=== PATIENT | male | born 1980 | race Caucasian/White ===

== ENCOUNTER → 2016-12-06 | Outpatient (CLI) | payer BC ==
--- NOTE | 2016-12-06 10:06 | CT ---
EXAMINATION TYPE: CT soft tissue neck w con DATE OF EXAM: 12/06/2016 9:38 AM COMPARISON: NONE HISTORY: Rt sided neck pain and swelling CT DLP: 510.4 mGycm CONTRAST: CT scan of the neck is performed with IV Contrast, patient injected with 100 ml mL of Omnipaque 300. Contrast enhanced CT of the neck was performed from the skull base through the lung apices. AIRWAY: The supraglottic, glottic, and subglottic portions of the airway appear patent and free of mass. SALIVARY GLANDS: The submandibular and parotid glands are free of mass or inflammatory process. THYROID GLAND: No nodules or masses seen. LYMPH NODES: Mildly prominent lymph node within the right internal jugular chain measuring 1.2 cm. No additional lymph nodes greater than 1 cm identified. LUNG APICES: No nodule or mass is seen. OTHER: Vascular structures are patent. No significant degenerative change of the cervical spine. N o abscess seen. IMPRESSION: Mild adenopathy within the right internal jugular chain.
== END | disposition home or self-care (01) ==
LOC: RADCTMAIN 09:14
PROVIDERS: ATTEND Otolaryngology
DX: R59.0 Localized enlarged lymph nodes (principal)
CPT/HCPCS: 70491; Q9967

== ENCOUNTER → 2017-04-28 | Outpatient (CLI) | payer BC ==
--- NOTE | 2017-04-28 09:28 | CT ---
EXAMINATION TYPE: CT iac wo con DATE OF EXAM: 04/28/2017 COMPARISON: NONE HISTORY: Superior canal dehiscence syndrome CT DLP: 150mGycm Automated exposure control for dose reduction was used. FINDINGS: Foramen magnum appears unremarkable. Cerebellar pontine angles unremarkable. The internal a uditory canals in the axial plane appear normal. Mastoid air cells are clear. External auditory canal s are normal. Middle ears are clear. Incus and malleus are normal bilaterally. Semicircular canals ar e normal. There appears be normal thick cortex surrounding the semicircular canals bilaterally. No ex pansion or erosion of the internal auditory canals is evident the axial plane Reconstructed images are reviewed in the coronal plane. The scutum are normal. Cochlea are normal. Th e attics are clear. No definite erosion is identified. The superior mastoid cortex appears intact as visualized. There is thinning present bilaterally, examples series 4 image 82 on the left and series 4 image 71 on the right. IMPRESSION: 1. There is thinning of the cortex mastoid air cells from the middle cranial fossa. Howeve r, definite erosion is not identified. 2. Semicircular canals are normal without evidence of erosion or thinning of the cortex adjacent.
== END | disposition home or self-care (01) ==
LOC: RADCTMAIN 09:00
PROVIDERS: ATTEND Otolaryngology Otology & Neurotology
DX: H83.11 Labyrinthine fistula, right ear (principal); H83.12 Labyrinthine fistula, left ear
CPT/HCPCS: 70480

== ENCOUNTER 2018-01-09 20:46 | Emergency (ER) | payer BC ==
[2018-01-09 21:00] VITALS: RESP 18
--- NOTE | 2018-01-09 22:58 | XR ---
EXAMINATION TYPE: XR chest 2V DATE OF EXAM: 01/09/2018 COMPARISON: NONE HISTORY: Chest pain TECHNIQUE: Frontal and lateral views of the chest are obtained. FINDINGS: Heart and mediastinum are normal. Lungs are clear. Diaphragm is normal. There are chest le ads. Bony thorax is intact. IMPRESSION: Normal chest. Normal heart.
[2018-01-09 22:59] LABS: Basophils # (A) 0.1 k/uL (0-0.2); Basophils % (A) 1 %; Eosinophils # (A) 0.1 k/uL (0-0.7); Eosinophils % (A) 1 %; HCT 49.8 % (39.0-53.0); HGB 17.4 gm/dL (13.0-17.5); Lymphocytes # (A) 2.6 k/uL (1.0-4.8); Lymphocytes % (A) 24 %; MCH 31.7 pg (25.0-35.0); MCHC 35.1 g/dL (31.0-37.0); MCV 90.5 fL (80.0-100.0); Mean Platelet Volume 6.6; Monocytes # (A) 0.8 k/uL (0-1.0); Monocytes % (A) 7 %; Neutrophils # (A) 7.2 k/uL (1.3-7.7); Neutrophils % (A) 65 %; Platelet Count 212 k/uL (150-450); RDW 13.9 % (11.5-15.5)
[2018-01-09 23:06] LABS: ALT 129 U/L (21-72); AST 50 U/L (17-59); Albumin 4.6 g/dL (3.5-5.0); Alkaline Phosphatase 37 U/L (38-126); Anion Gap 10 mmol/L; Blood Urea Nitrogen 19 mg/dL (9-20); Carbon Dioxide 30 mmol/L (22-30); Chloride 102 mmol/L (98-107); Glucose 97 mg/dL (74-99); Sodium 142 mmol/L (137-145); Total Bilirubin 0.5 mg/dL (0.2-1.3); Total Protein 7.7 g/dL (6.3-8.2)
[2018-01-09 23:07] LABS: D-Dimer 0.57 mg/L FEU (<0.60)
[2018-01-09 23:09] LABS: Creatine Kinase 99 U/L (55-170)
[2018-01-09 23:13] LABS: INR 1.1 (<1.2); Partial Thromboplastin Time 23.8 sec (22.0-30.0); Prothrombin Time 10.7 sec (9.0-12.0)
[2018-01-09 23:22] LABS: Creatine Kinase MB 0.3 ng/mL (0.0-2.4); Troponin I <0.012 ng/mL (0.000-0.034)
--- NOTE | 2018-01-09 23:28 | ED ---
Chest Pain HPI - General Chief Complaint: Chest Pain Stated Complaint: Right arm tingling; jaw pain Time Seen by Provider: 01/09/18 22:29 Source: patient Mode of arrival: wheelchair Limitations: no limitations - History of Present Illness Initial Comments: This patient is a 37-year-old man who presents to be evaluated for chest pains. The patient did give further history than he did in triage assessment, that he has been having weeks of intermittent episodes of this. He states that he will have anywhere from a few hours to a couple of days of symptoms. He was more concerned because today he had some radiation of the symptoms initially to the right arm but he states subsequently to both arms. He describes the symptoms as being like a tingling feeling. He denies any anginal symptoms, including no diaphoresis, dyspnea, nausea or vomiting, palpitations, lightheadedness or syncope. He states that he has been under a lot of stress recently and feels that this may have contributed. MD Complaint: chest pain -: week(s) Onset: during rest Pain Location: substernal Pain Radiation: RUE Severity: mild Quality: heaviness Consistency: intermittent Improves With: nothing Worsens With: nothing Treatments Prior to Arrival: none - Related Data Home Medications Medication Instructions Recorded Confirmed No Known Home Medications [No 01/09/18 01/09/18 Known Home Medications] Allergies Allergy/AdvReac Type Severity Reaction Status Date / Time No Known Allergies Allergy Verified 01/09/18 22:20 Review of Systems ROS Statement: Those systems with pertinent positive or pertinent negative responses have been documented in the HPI. ROS Other: All systems not noted in ROS Statement are negative. Constitutional: Denies: fever, chills Respiratory: Denies: cough, dyspnea Cardiovascular: Reports: chest pain. Denies: palpitations, orthopnea, edema, syncope Gastrointestinal: Denies: abdominal pain, nausea, vomiting Musculoskeletal: Denies: back pain Skin: Denies: rash Neurological: Denies: headache, weakness, numbness Psychiatric: Reports: anxiety EKG Findings - EKG Results: EKG: interpreted by LEE ANN MANLEY, sinus rhythm (Rate 64 bpm), normal axis, normal QRS, normal ST/T, no acute changes - MD, Pacemaker, Normal: Normal tracing: normal tracing Past Medical History Past Medical History: No Reported History History of Any Multi-Drug Resistant Organisms: None Reported Past Surgical History: Appendectomy Past Psychological History: No Psychological Hx Reported Smoking Status: Current every day smoker Past Alcohol Use History: Occasional Past Drug Use History: None Reported General Exam Limitations: no limitations General appearance: alert, in no apparent distress, anxious Head exam: Present: atraumatic, normocephalic Eye exam: Present: normal appearance. Absent: scleral icterus, conjunctival injection ENT exam: Present: normal oropharynx Respiratory exam: Present: normal lung sounds bilaterally. Absent: respiratory distress, wheezes, rales, rhonchi, stridor Cardiovascular Exam: Present: regular rate, normal rhythm, normal heart sounds. Absent: systolic murmur, diastolic murmur, rubs, gallop GI/Abdominal exam: Present: soft. Absent: distended, tenderness, guarding, rebound, rigid Extremities exam: Present: normal inspection, normal capillary refill. Absent: pedal edema, calf tenderness Back exam: Present: normal inspection. Absent: CVA tenderness (R), CVA tenderness (L) Neurological exam: Present: alert Skin exam: Present: warm, dry, intact, normal color. Absent: rash Course Vital Signs 01/09/18 01/09/18 01/09/18 20:58 22:36 23:51 Temperature 98 F 98.2 F 98.3 F Pulse Rate 116 H 75 62 Respiratory 18 18 18 Rate Blood Pressure 131/79 126/79 121/76 O2 Sat by Pulse 96 99 97 Oximetry Chest Pain MDM - [facility] Patient's a 37-year-old man with atypical type chest pain which is been going on for number weeks. His EKG is normal and his workup here is negative. Given the duration of symptoms, will discharge patient with the single troponin. He will follow-up with his physician area we discussed return parameters and appropriate follow-up and all questions answered. Disposition Clinical Impression: Chest pain, Anxiety Disposition: HOME SELF-CARE Condition: Good Instructions: Chest Pain (ED), Anxiety (ED) Referrals: Ayden Santos DO [Primary Care Provider] - 1-2 days
[2018-01-09 23:52] VITALS: BP 121/76; PULSE 62; TEMP 98.3
== END 2018-01-10 00:26 | disposition home or self-care (01) ==
LOC: EC 20:46
DX: F41.9 Anxiety disorder, unspecified (principal); R07.89 Other chest pain; F17.200 Nicotine dependence, unspecified, uncomplicated
CPT/HCPCS: 36415; 71046; 80053; 82550; 82553; 83735; 84484; 85025; 85379; 85610; 85730; 93005; 99285

== ENCOUNTER → 2018-05-11 | Outpatient (CLI) | payer BC ==
--- NOTE | 2018-05-11 07:49 | US ---
EXAMINATION TYPE: US liver DATE OF EXAM: 05/11/2018 COMPARISON: NONE CLINICAL HISTORY: 37-year-old male K81.9 Cholecystitis. Pt states post prandial RUQ pain x 1 month TECHNIQUE: Multiple sonographic images of the right upper quadrant are obtained. FINDINGS: EXAM MEASUREMENTS: Liver Length: 12.0 cm Gallbladder Wall: 0.2 cm CBD: 0.5 cm Right Kidney: 10.1 x 4.7 x 5.1 cm Pancreas: Obscured by bowel gas Liver: Difficult to image, very echogenic and attenuating. The secondary limits assessment for focal lesion, probable fatty sparing near GB Gallbladder: wnl Evidence for sonographic Pat's sign: Yes CBD: wnl Right Kidney: No hydronephrosis IMPRESSION: 1. Very echogenic and attenuating liver suggests marked hepatic steatosis. Correlate with LFTs, lipid profile, and patient risk factors. 2. No sonographic evidence for cholelithiasis or acute cholecystitis. However, sonographic Pat sig n is reported positive. This could reflect referred pain such as from the liver itself. If further im aging evaluation of the gallbladder is indicated, HIDA scan with ejection fraction can be considered.
== END | disposition home or self-care (01) ==
LOC: RADUSWWP 06:58
PROVIDERS: ATTEND Family Medicine
DX: R93.2 Abnormal findings on diagnostic imaging of liver and biliary tract (principal); K81.9 Cholecystitis, unspecified
CPT/HCPCS: 76705

== ENCOUNTER → 2018-05-29 | Outpatient (CLI) | payer BC ==
--- NOTE | 2018-05-29 11:03 | NM ---
Nuclear medicine hepatobiliary scan. HISTORY: Pain. DOSAGE: The patient received 8 ounces of ensure plus and 5.1 mCi of Technetium 99m Choletec. FINDINGS: There is normal hepatic extraction. The gallbladder is seen by 20 minutes. There is bilia ry to bowel clearance by 35 minutes. Ejection fraction is 54%. IMPRESSION: 1. Normal hepatobiliary exam
== END | disposition home or self-care (01) ==
LOC: RADNMMAIN 08:42
PROVIDERS: ATTEND Family Medicine
DX: K76.0 Fatty (change of) liver, not elsewhere classified (principal)
CPT/HCPCS: 78226; A9537

== ENCOUNTER → 2018-06-22 | Outpatient (CLI) | payer BC ==
--- NOTE | 2018-06-22 16:01 | CT ---
EXAMINATION TYPE: CT abdomen pelvis wo con DATE OF EXAM: 06/22/2018 COMPARISON: None HISTORY: Rt flank pain CT DLP: 1129 mGycm Examination of the solid and hollow viscera is limited given the lack of contrast. FINDINGS: LUNG BASES: No evidence for nodule. No evidence for infiltrate. LIVER/GB: The gallbladder is unremarkable. No space-occupying hepatic lesion. PANCREAS: No pancreatic mass identified. No inflammatory process seen. SPLEEN: No evidence for splenomegaly. No intrasplenic lesions seen. ADRENALS: No adrenal nodules identified. No evidence for thickening. KIDNEYS: No evidence for renal mass. No nephrolithiasis. No hydronephrosis. BOWEL: Appendix has a normal appearance. No evidence of bowel obstruction. No inflammatory process. Lymph nodes: No evidence for adenopathy greater than 1 cm. Abdominal aorta: Atheromatous changes seen. No evidence for aneurysm. Genital organs: No significant abnormality. Other: No ventral hernia identified. IMPRESSION: No distinct abnormality seen at this time.
== END | disposition home or self-care (01) ==
LOC: RADCTMAIN 13:35
PROVIDERS: ATTEND Family Medicine
DX: K59.00 Constipation, unspecified (principal); K43.9 Ventral hernia without obstruction or gangrene
CPT/HCPCS: 74176

== ENCOUNTER 2018-10-22 02:41 | Observation (INO) | payer BC ==
--- NOTE | 2018-10-22 03:21 | ED ---
General Adult HPI - General Chief complaint: Chest Pain Stated complaint: chest pain Time Seen by Provider: 10/22/18 03:21 Source: patient Mode of arrival: ambulatory Limitations: no limitations - History of Present Illness Initial comments: Ugo is an overweight 38yo male who presents the emergency department today for evaluation of sudden onset of sharp left-sided chest and flank pain. Patient reports he was resting when he had a sudden onset of a sharp pain that radiated from his left upper abdomen to his left shoulder. Patient reports that after the pain began he felt numbness and tingling in his bilateral arms and then felt like his entire body turned into Jell-O. He states that he had trouble breathing and felt lightheaded when this pain happened. He reports the pain was very sharp and lasted for only 10-15 seconds however since that time he has an aching in his left chest. She denies any fevers, chills, cough, URI symptoms, change in bowel or bladder habits. He has no history of kidney stones. As overweight, he is in every day cigarette smoker, he does have a strong family history of early cardiac disease including a mother with coronary artery disease in a brother who had a NV in his 40s. - Related Data Home Medications Medication Instructions Recorded Confirmed No Known Home Medications 01/09/18 10/22/18 Allergies Allergy/AdvReac Type Severity Reaction Status Date / Time No Known Allergies Allergy Verified 10/22/18 08:21 Review of Systems ROS Statement: Those systems with pertinent positive or pertinent negative responses have been documented in the HPI. ROS Other: All systems not noted in ROS Statement are negative. Past Medical History Past Medical History: No Reported History History of Any Multi-Drug Resistant Organisms: None Reported Past Surgical History: Appendectomy Past Psychological History: No Psychological Hx Reported Smoking Status: Current every day smoker Past Alcohol Use History: Occasional Past Drug Use History: None Reported General Exam - General Exam Comments Initial Comments: Physical Exam GENERAL: Patient is well-developed and well-nourished. Patient is nontoxic and well- hydrated and is in no distress. HENT: Normocephalic, Atraumatic. EYES: PERRL, EOMI PULMONARY: Unlabored respirations. No audible rales rhonchi or wheezing was noted. CARDIOVASCULAR: There is a regular rate and rhythm without any murmurs gallops or rubs. ABDOMEN: Soft and nontender with normal bowel sounds. SKIN: Skin is clear with no lesions or rashes and otherwise unremarkable. : Deferred NEUROLOGIC: Patient is alert and oriented x3. Moving all extremities spontaneously MUSCULOSKELETAL: Normal extremities with adequate strength and full range of motion. No lower extremity swelling or edema. No calf tenderness. PSYCHIATRIC: Normal psychiatric evaluation. Limitations: no limitations Limitations: no limitations Course Vital Signs 10/22/18 10/22/18 02:48 08:13 Temperature 98.2 F 98.0 F Pulse Rate 78 80 Respiratory 20 18 Rate Blood Pressure 157/104 119/76 O2 Sat by Pulse 99 97 Oximetry EKG Findings - EKG Comments: EKG Findings:: KG obtained at 3:03 AM, rate is 80, rhythm is sinus, there is normal axis, normal intervals, her no acute ST elevations or depressions no evidence of acute ischemia or infarction Medical Decision Making - Medical Decision Making Patient was seen and evaluated history was obtained from patient and at bedside Patient with vague history of a sharp pain in his left upper abdomen that radiated to his shoulder Labs and imaging ordered EKG NSR, no acute fijndings Labs and imaging reviewed no acute findings UA with no hematuria to indicate kidney stone Patient re-evaluated, now complainin of aching left sided chest pain, no SOB or diaphroesis - however patient now stating significant family history and brother with NV at age 40 - will place in obs with cardiology on consult Admission orders placed - Lab Data Result diagrams: 10/22/18 03:07 10/22/18 03:07 Lab Results 10/22/18 10/22/18 10/22/18 Range/Units 03:07 03:07 03:07 WBC 10.6 (3.8-10.6) k/uL RBC 5.44 (4.30-5.90) m/uL Hgb 16.8 (13.0-17.5) gm/dL Hct 50.5 (39.0-53.0) % MCV 92.9 (80.0-100.0) fL MCH 30.9 (25.0-35.0) pg MCHC 33.2 (31.0-37.0) g/dL RDW 14.2 (11.5-15.5) % Plt Count 196 (150-450) k/uL Neutrophils % 62 % Lymphocytes % 28 % Monocytes % 6 % Eosinophils % 2 % Basophils % 1 % Neutrophils # 6.6 (1.3-7.7) k/uL Lymphocytes # 2.9 (1.0-4.8) k/uL Monocytes # 0.6 (0-1.0) k/uL Eosinophils # 0.2 (0-0.7) k/uL Basophils # 0.1 (0-0.2) k/uL PT (9.0-12.0) sec INR (<1.2) APTT (22.0-30.0) sec Sodium 144 (137-145) mmol/L Potassium 4.3 (3.5-5.1) mmol/L Chloride 105 (98-107) mmol/L Carbon Dioxide 28 (22-30) mmol/L Anion Gap 11 mmol/L BUN 20 (9-20) mg/dL Creatinine 1.22 (0.66-1.25) mg/dL Est GFR (CKD-EPI)AfAm 87 (>60 ml/min/1.73 sqM) Est GFR (CKD-EPI)NonAf 76 (>60 ml/min/1.73 sqM) Glucose 107 H (74-99) mg/dL Calcium 9.8 (8.4-10.2) mg/dL Magnesium 2.0 (1.6-2.3) mg/dL Total Bilirubin 0.5 (0.2-1.3) mg/dL AST 32 (17-59) U/L ALT 56 (21-72) U/L Alkaline Phosphatase 39 (38-126) U/L Total Creatine Kinase 121 (55-170) U/L CK-MB (CK-2) 0.3 (0.0-2.4) ng/mL CK-MB (CK-2) Rel Index 0.2 Troponin I <0.012 (0.000-0.034) ng/mL Total Protein 8.4 H (6.3-8.2) g/dL Albumin 4.8 (3.5-5.0) g/dL Urine Color Urine Appearance (Clear) Urine pH (5.0-8.0) Ur Specific [place] (1.001-1.035) Urine Protein (Negative) Urine Glucose (UA) (Negative) Urine Ketones (Negative) Urine Blood (Negative) Urine Nitrite (Negative) Urine Bilirubin (Negative) Urine Urobilinogen (<2.0) mg/dL Ur Leukocyte Esterase (Negative) 10/22/18 10/22/18 Range/Units 03:07 04:18 WBC (3.8-10.6) k/uL RBC (4.30-5.90) m/uL Hgb (13.0-17.5) gm/dL Hct (39.0-53.0) % MCV (80.0-100.0) fL MCH (25.0-35.0) pg MCHC (31.0-37.0) g/dL RDW (11.5-15.5) % Plt Count (150-450) k/uL Neutrophils % % Lymphocytes % % Monocytes % % Eosinophils % % Basophils % % Neutrophils # (1.3-7.7) k/uL Lymphocytes # (1.0-4.8) k/uL Monocytes # (0-1.0) k/uL Eosinophils # (0-0.7) k/uL Basophils # (0-0.2) k/uL PT 10.1 (9.0-12.0) sec INR 0.9 (<1.2) APTT 24.8 (22.0-30.0) sec Sodium (137-145) mmol/L Potassium (3.5-5.1) mmol/L Chloride (98-107) mmol/L Carbon Dioxide (22-30) mmol/L Anion Gap mmol/L BUN (9-20) mg/dL Creatinine (0.66-1.25) mg/dL Est GFR (CKD-EPI)AfAm (>60 ml/min/1.73 sqM) Est GFR (CKD-EPI)NonAf (>60 ml/min/1.73 sqM) Glucose (74-99) mg/dL Calcium (8.4-10.2) mg/dL Magnesium (1.6-2.3) mg/dL Total Bilirubin (0.2-1.3) mg/dL AST (17-59) U/L ALT (21-72) U/L Alkaline Phosphatase (38-126) U/L Total Creatine Kinase (55-170) U/L CK-MB (CK-2) (0.0-2.4) ng/mL CK-MB (CK-2) Rel Index Troponin I (0.000-0.034) ng/mL Total Protein (6.3-8.2) g/dL Albumin (3.5-5.0) g/dL Urine Color Yellow Urine Appearance Clear (Clear) Urine pH 6.0 (5.0-8.0) Ur Specific [place] 1.025 (1.001-1.035) Urine Protein Negative (Negative) Urine Glucose (UA) Negative (Negative) Urine Ketones Negative (Negative) Urine Blood Negative (Negative) Urine Nitrite Negative (Negative) Urine Bilirubin Negative (Negative) Urine Urobilinogen <2.0 (<2.0) mg/dL Ur Leukocyte Esterase Negative (Negative) Disposition Clinical Impression: Chest pain Disposition: ADMITTED IP TO THIS HOSP Referrals: Ayden Santos DO [Primary Care Provider] - 1-2 days
[2018-10-22 03:32] LABS: Basophils # (A) 0.1 k/uL (0-0.2); Basophils % (A) 1 %; Eosinophils # (A) 0.2 k/uL (0-0.7); Eosinophils % (A) 2 %; HCT 50.5 % (39.0-53.0); HGB 16.8 gm/dL (13.0-17.5); Lymphocytes # (A) 2.9 k/uL (1.0-4.8); Lymphocytes % (A) 28 %; MCH 30.9 pg (25.0-35.0); MCHC 33.2 g/dL (31.0-37.0); MCV 92.9 fL (80.0-100.0); Mean Platelet Volume 6.3; Monocytes # (A) 0.6 k/uL (0-1.0); Monocytes % (A) 6 %; Neutrophils # (A) 6.6 k/uL (1.3-7.7); Neutrophils % (A) 62 %; Platelet Count 196 k/uL (150-450); RBC 5.44 m/uL (4.30-5.90); RDW 14.2 % (11.5-15.5); WBC 10.6 k/uL (3.8-10.6)
[2018-10-22 03:45] LABS: Albumin 4.8 g/dL (3.5-5.0); Calcium 9.8 mg/dL (8.4-10.2); Potassium 4.3 mmol/L (3.5-5.1); Total Bilirubin 0.5 mg/dL (0.2-1.3); Total Protein 8.4 g/dL (6.3-8.2)
[2018-10-22 03:57] LABS: Creatine Kinase 121 U/L (55-170)
--- NOTE | 2018-10-22 03:57 | XR ---
EXAMINATION TYPE: XR chest 2V DATE OF EXAM: 10/22/2018 COMPARISON: 01/09/2018 HISTORY: Chest pain TECHNIQUE: Frontal and lateral views of the chest are obtained. FINDINGS: Heart and mediastinum are normal. Lungs are clear. Diaphragm is normal. Bony thorax appear s normal. There are chest leads. IMPRESSION: Normal chest. No change.
[2018-10-22 04:08] LABS: Creatine Kinase MB 0.3 ng/mL (0.0-2.4); Troponin I <0.012 ng/mL (0.000-0.034)
[2018-10-22 04:17] LABS: INR 0.9 (<1.2); Partial Thromboplastin Time 24.8 sec (22.0-30.0); Prothrombin Time 10.1 sec (9.0-12.0)
[2018-10-22 06:37] LABS: Appearance,Urine Clear (Clear); Bilirubin,Urine Negative (Negative); Blood,Urine Negative (Negative); Color,Urine Yellow; Glucose,Urine (UA) Negative (Negative); Ketones,Urine Negative (Negative); Leukocyte Esterase,Urine Negative (Negative); Nitrite,Urine Negative (Negative); Protein,Urine Negative (Negative); Specific Gravity,Urine 1.025 (1.001-1.035); Urobilinogen,Urine <2.0 mg/dL (<2.0)
[2018-10-22 08:14] VITALS: RESP 18
[2018-10-22] MEDS ORDERED: ASPIRIN 81 MG PO STA (08:38)
[2018-10-22] MEDS ORDERED: NITROGLYCERIN SL TABS 0.4 MG TAB SUBLINGUAL PRN (08:38)
[2018-10-22 10:07] LABS: Creatine Kinase 92 U/L (55-170)
[2018-10-22 10:19] LABS: Creatine Kinase MB <0.2 ng/mL (0.0-2.4); Troponin I <0.012 ng/mL (0.000-0.034)
[2018-10-22 10:28] VITALS: BP 131/72; PULSE 88; TEMP 98.2
--- NOTE | 2018-10-22 10:47 | P.CRDCN ---
History of Present Illness History of present illness: This is a pleasant 38-year-old male past medical history significant for chronic nicotine dependence. He denies history of coronary artery disease, hypertension, dyslipidemia or diabetes mellitus. He states his brother had a heart attack in his mid 40s and his mother had a stent placed in her 60s. He does not follow with a supply tech for any reason however he did undergo stress test approximately 10 years ago which she states was normal. We have been asked to see him in consultation for symptoms of chest discomfort. He states last night while he was sitting in his chair watching television he felt a sharp digging pain in he left precordial region that lastedfor 10 seconds. hefelt very lightheaded, arms and legs all felt numb and tingly for 30-40 minutes thereafter. He denies shortness of breath, palpitations or diaphoresis. at the time of my exam he is seen resting comfortably in bed in no acute distress. He denies any further symptoms of chest discomfort, dizziness or numbness and tingling. He states he feels a generalized achy sensation in his thoracic region. EKG reveals sinus mechanism with no acute ST or T wave abnormalities noted. Chest x-ray is negative for acute cardiopulmonary process. Laboratory data reviewed, WBC 10.6, hemoglobin 16.8, platelets 196, sodium 144, potassium 4.3, magnesium 2.0, creatinine 1.22, cardiac enzymes negative 2. He takes no daily cardiac medications. At the time of my exam: CONSTITUTIONAL: Denies fever. Denies chills. EYES: Denies blurred vision. Denies vision changes. Denies eye pain. EARS, NOSE, MOUTH & THROAT: Denies headache. Denies sore throat. Denies ear pain. CARDIOVASCULAR: Denies chest pain. Denies shortness of breath. Denies orthopnea. Denies PND. Denies palpitations. RESPIRATORY: Denies cough. GASTROINTESTINAL: Denies abdominal pain. Denies diarrhea. Denies constipation. Denies nausea. Denies vomiting. MUSCULOSKELETAL: Denies myalgias. INTEGUMENTARY: Denies pruitis. Denies rash. NEUROLOGIC: Denies numbness. Denies tingling. Denies weakness. PSYCHIATRIC: Denies anxiety. Denies depression. ENDOCRINE: Denies fatigue. Denies weight change. Denies polydipsia. Denies polyurina. GENITOURINARY: Denies burning, hematuria or urgency with micturation. HEMATOLOGIC: Denies history of anemia. Denies bleeding. Blood pressure 119/76 heart rate 88 afebrile maintaining oxygen saturation on room air GENERAL: This is a 38-year-old male in no apparent distress at the time of my examination. HEENT: Head is atraumatic, normocephalic. Pupils are equal, round. Sclerae anicteric. Conjunctivae are clear. Mucous membranes of the mouth are moist. Neck is supple. There is no jugular venous distention. No carotid bruit is heard. LUNGS: Clear to auscultation no wheezes, rales or rhonchi. No chest wall tenderness is noted on palpation or with deep breathing. HEART: Regular rate and rhythm without murmurs, rubs or gallops. S1 and S2 heard. ABDOMEN: Soft, nontender. Bowel sounds are heard. No organomegaly noted. EXTREMITIES: No evidence of peripheral edema and no calf tenderness noted. VASCULAR: Radial and dorsalis pedis pulses palpated, no evidence of clubbing. NEUROLOGIC: Patient is awake, alert and oriented x3. ASSESSMENT Chest pain, atypical. An acute coronary event has been ruled out with no EKG evidence of ischemia and negative cardiac enzymes. Chronic nicotine dependence PLAN An acute coronary event has been ruled out with no EKG evidence of ischemia and negative cardiac enzymes. Increase activity in the halls and assess for exertional chest discomfort. Stable from a cardiac perspective. The patient has been advised that he should follow-up with his primary care physician and have an outpatient stress test. A prescription has been provided to the patient has been advised to call the hospital tomorrow and schedule this as soon as possible. Smoking cessation highly recommended. Thank you kindly for this consultation. Nurse Practitioner note has been reviewed, I agree with a documented findings and plan of care. Patient was seen and examined. Past Medical History Past Medical History: No Reported History History of Any Multi-Drug Resistant Organisms: None Reported Past Surgical History: Appendectomy Past Psychological History: No Psychological Hx Reported Smoking Status: Current every day smoker Past Alcohol Use History: Occasional Past Drug Use History: None Reported Medications and Allergies Home Medications Medication Instructions Recorded Confirmed Type No Known Home Medications 01/09/18 10/22/18 History Allergies Allergy/AdvReac Type Severity Reaction Status Date / Time No Known Allergies Allergy Verified 10/22/18 08:21 Physical Exam Vitals: Vital Signs Temp Pulse Resp BP Pulse Ox 10/22/18 08:13 98.0 F 80 18 119/76 97 10/22/18 02:48 98.2 F 78 20 157/104 99 Intake and Output 10/21/18 10/22/18 10/22/18 22:59 06:59 14:59 Other: Weight 92.986 kg Results 10/22/18 03:07 10/22/18 03:07 Cardiac Enzymes 10/22/18 10/22/18 Range/Units 03:07 03:07 AST 32 (17-59) U/L CK-MB (CK-2) 0.3 (0.0-2.4) ng/mL Troponin I <0.012 (0.000-0.034) ng/mL Coagulation 10/22/18 Range/Units 03:07 PT 10.1 (9.0-12.0) sec APTT 24.8 (22.0-30.0) sec CBC 10/22/18 Range/Units 03:07 WBC 10.6 (3.8-10.6) k/uL RBC 5.44 (4.30-5.90) m/uL Hgb 16.8 (13.0-17.5) gm/dL Hct 50.5 (39.0-53.0) % Plt Count 196 (150-450) k/uL Comprehensive Metabolic Panel 10/22/18 Range/Units 03:07 Sodium 144 (137-145) mmol/L Potassium 4.3 (3.5-5.1) mmol/L Chloride 105 (98-107) mmol/L Carbon Dioxide 28 (22-30) mmol/L BUN 20 (9-20) mg/dL Creatinine 1.22 (0.66-1.25) mg/dL Glucose 107 H (74-99) mg/dL Calcium 9.8 (8.4-10.2) mg/dL AST 32 (17-59) U/L ALT 56 (21-72) U/L Alkaline Phosphatase 39 (38-126) U/L Total Protein 8.4 H (6.3-8.2) g/dL Albumin 4.8 (3.5-5.0) g/dL Current Medications Generic Name Dose Route Start Last Admin Trade Name Freq PRN Reason Stop Dose Admin Aspirin 325 mg 10/23/18 09:00 Aspirin PO DAILY DANISHA Nitroglycerin 0.4 mg 10/22/18 08:38 Nitrostat SUBLINGUAL Q5M PRN Chest Pain Intake and Output 10/21/18 10/22/18 10/22/18 22:59 06:59 14:59 Other: Weight 92.986 kg 10/22/18 03:07 10/22/18 03:07
[2018-10-22 10:55] LABS: Cholesterol 233 mg/dL (<200); HDL Cholesterol 47 mg/dL (40-60); LDL Cholesterol,Calculated 147 mg/dL (0-99); Triglycerides 194 mg/dL (<150)
--- NOTE | 2018-10-22 12:13 | P.HPIM ---
History of Present Illness On-call hospitalist covering for Dr. Santos over the weekend Combined H&P and discharge summary This is a pleasant 38 years old male with no significant past medical history who presents because of chest pain of 10 seconds in duration. Yesterday he was lying when he developed this shooting chest pain , on the left side nonradiating associated with some tingling and numbness in his hands and feet with lightheadedness and electrical feeling in his neck and middle back which all resolved now except for some soreness in his left side of the chest just below his left nipple this pain is increased with movement and associated with tenderness and no much change with deep inspiration and coughing. No associated dyspnea. No more dizziness. No change in urine or bowel habits. No fever. Vitas looks stable, CBC and BMP were unremarkable. And his urine is negative. Patient has mildly elevated cholesterol 233, triglycerides 194 and LDL 147. Do serial cardiac enzymes were negative. Patient has been evaluated by it data architect and already cleared him for discharge with recommendation for outpatient stress test. Patient told me he is going to call this week and make appointments to get the stress test. He is a patient of Dr. Santos and he follows agrees to call and make an appointment within 1 week. 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 Problems and management plan was discussed with the patient including counseling to quit smoking, patient verbalized understanding and acceptance however he does not want nicotine patch as he told me he had at home. Patient was found stable and can be discharged home however he needs follow-up as an outpatient. physical exam Gen.: Patient alert awake and oriented X 3, NOT IN DISTRESS CVS: s1-s2, RRR, no murmur CHEST:bilateral CTA, no wheezing or crepitation Abdomen: Soft, no tenderness, no distention, positive bowel sounds. Patient refused to examine the genital area and the testicles Extremities: No leg edema or induration Time spent more than 35 minutes Review of Systems CONSTITUTIONAL: No fever, no malaise, no fatigue. HEENT: No recent visual problems or hearing problems. Denied any sore throat. CARDIOVASCULAR: No orthopnea, PND, no palpitations, no syncope. PULMONARY: No shortness of breath, no cough, no hemoptysis. GASTROINTESTINAL: No diarrhea, no nausea, no vomiting, no abdominal pain. Normoactive bowel sounds. NEUROLOGICAL: No headaches, no weakness, no numbness. HEMATOLOGICAL: Denies any bleeding or petechiae. GENITOURINARY: Denies any burning micturition, frequency, or urgency. MUSCULOSKELETAL/RHEUMATOLOGICAL: Denies any joint pain, swelling, or any muscle pain. ENDOCRINE: Denies any polyuria or polydipsia. Past Medical History Past Medical History: No Reported History History of Any Multi-Drug Resistant Organisms: None Reported Past Surgical History: Appendectomy Past Psychological History: No Psychological Hx Reported Smoking Status: Current every day smoker Past Alcohol Use History: Occasional Past Drug Use History: None Reported Medications and Allergies Home Medications Medication Instructions Recorded Confirmed Type No Known Home Medications 01/09/18 10/22/18 History Allergies Allergy/AdvReac Type Severity Reaction Status Date / Time No Known Allergies Allergy Verified 10/22/18 08:21 Physical Exam Vitals: Vital Signs Temp Pulse Resp BP Pulse Ox 10/22/18 10:28 98.2 F 88 18 131/72 100 10/22/18 08:13 98.0 F 80 18 119/76 97 10/22/18 02:48 98.2 F 78 20 157/104 99 Intake and Output 10/21/18 10/22/18 10/22/18 22:59 06:59 14:59 Other: Weight 92.986 kg Results CBC & Chem 7: 10/22/18 03:07 10/22/18 03:07 Labs: Abnormal Lab Results - Last 24 Hours (Table) 10/22/18 10/22/18 Range/Units 03:07 03:07 Glucose 107 H (74-99) mg/dL Total Protein 8.4 H (6.3-8.2) g/dL Triglycerides 194 H (<150) mg/dL Cholesterol 233 H (<200) mg/dL LDL Cholesterol, Calc 147 H (0-99) mg/dL Assessment and Plan Assessment: Chest pain, resolved. Hydro Generation Manager evaluated the patient and cleared him for discharge Hyperlipidemia, patient consult about diet therapy and follow-up with his PCP Cigarette smoker, consult. Patient didn't want prescription for nicotine patch as he mentioned he had it at home. Chronic right testicular pain, patient follow-up with his PCP Plan: Patient symptoms significantly improved, he cleared by it data architect for discharge. Patient does not want to wait to the hospital and he got to go home. he is found stable to be discharged home
--- NOTE | 2018-10-22 12:16 | P.DS ---
Providers Date of admission: 10/22/18 08:38 Attending physician: Nicanor Yen MD Consults: 10/22/18 08:39 Consult Physician Urgent Consulting Provider: [facility] Consult Reason/Comments: high risk chest pain Do you want consulting provider notified?: Yes Primary care physician: Ayden Santos [facility] Course: Please refer to my note from today [H&P] Note: Patient was informed about his lipid profile which is moderately elevated numbers provided for the patient. Patient agrees to do diet therapy and follow- up with his PCP Dr. Santos to check his lipid panel. Plan - Discharge Summary New Discharge Prescriptions: No Action No Known Home Medications Discharge Medication List No Known Home Medications 01/09/18 [History] Follow up Appointment(s)/Referral(s): Daniel Burns MD [STAFF PHYSICIAN] - 1 Week Ayden Santos DO [Primary Care Provider] - 1-2 days Activity/Diet/Wound Care/Special Instructions: cardiac diet activity is limited till you see your doctor
[2018-10-23] MEDS ORDERED: ASPIRIN 325 MG TAB PO SCH (09:00)
== END 2018-10-22 12:34 | disposition home or self-care (01) ==
LOC: EC 02:41 → 1SOBS 08:38
PROVIDERS: ADMIT Internal Medicine; ATTEND Internal Medicine
DX: R07.89 Other chest pain (principal); R07.2 Precordial pain; R10.9 Unspecified abdominal pain; R20.2 Paresthesia of skin; R20.0 Anesthesia of skin; R42 Dizziness and giddiness; N50.811 Right testicular pain; E78.5 Hyperlipidemia, unspecified; F17.210 Nicotine dependence, cigarettes, uncomplicated; Z82.49 Family history of ischemic heart disease and other diseases of the circulatory system; E66.3 Overweight; Z68.31 Body mass index [BMI] 31.0-31.9, adult
CPT/HCPCS: 99285; 36415; 80061; 80053; 82550; 82553; 83735; 84484; 85025; 85610; 85730; 81003; 71046; G0378